=== PATIENT | female | born 1985 | race Hispanic/Latino ===

== ENCOUNTER 2023-12-07 18:21 | Emergency (ER) | payer BC, OTHER ==
[~2023-12-07] VITALS: Ht 154.9 cm; Wt 113.4 kg
[2023-12-07 20:40] LABS: BASOPHILS # (AUTO) 0.09 K/uL (0.00-0.20); BASOPHILS % (AUTO) 0.7 % (0.0-5.0); EOSINOPHILS # (AUTO) 0.14 K/uL (0.00-0.70); EOSINOPHILS % (AUTO) 1.1 % (0.0-8.0); HEMATOCRIT 37.9 % (36-48); IMMATURE GRANULOCYTE ABSOLUTE 0.04 K/uL (0-1); LYMPHOCYTES # (AUTO) 2.8 K/uL (1.0-4.8); LYMPHOCYTES % (AUTO) 21.5 % (21.0-51.0); MEAN CORPUSCULAR HEMOGLOBIN 27.8 pg (27.0-33.0); MEAN CORPUSCULAR HGB CONC 32.2 g/dL (32.0-36.0); MEAN CORPUSCULAR VOLUME 86.3 fL (79-99); MONOCYTES # (AUTO) 0.8 K/uL (0.1-1.0); MONOCYTES % (AUTO) 5.8 % (3.0-13.0); NEUTROPHILS # (AUTO) 9.2 K/uL (1.8-7.7); NEUTROPHILS % (AUTO) 70.6 % (40.0-77.0); PLATELET COUNT (AUTO) 387 K/uL (130-400); RED BLOOD CELL COUNT(AUTO) 4.39 MIL/uL (4.00-5.50)
[2023-12-07 20:52] LABS: CREATININE 0.8 mg/dL (0.5-1.0); POTASSIUM 3.8 mmol/L (3.5-5.1)
[2023-12-07 20:56] LABS: ALBUMIN 3.2 g/dL (3.5-5.0); BILIRUBIN,TOTAL 0.4 mg/dL (0.2-1.0); TOTAL PROTEIN, SERUM 7.6 g/dL (6.0-8.3)
[2023-12-07] MEDS: 0.9%NACL 1000ML 957 ML IV ONE (21:55)
[2023-12-07] MEDS: ONDANSETRON 4MG INJ IVP ONE (21:55)
[2023-12-07] MEDS: MORPHINE 4 MG SYG IVP ONE (21:55)
[2023-12-07] MEDS ORDERED: IOHEXOL-350 75 ML VIAL IV ONE (23:15)
[2023-12-07 23:36] LABS: APPEARANCE,URINE CLEAR (CLEAR); BILIRUBIN,URINE NEGATIVE (NEGATIVE); COLOR,URINE COLORLESS (YELLOW); GLUCOSE, URINE (UA) NEGATIVE (NEGATIVE); KETONES,URINE NEGATIVE (NEGATIVE); LEUKOCYTE ESTERASE ,URINE NEGATIVE Leu/uL (NEGATIVE); NITRATE,URINE NEGATIVE (NEGATIVE); OCCULT BLOOD,URINE NEGATIVE (NEGATIVE); PROTEIN,URINE NEGATIVE (NEGATIVE); UROBILINOGEN,URINE 0.2 mg/dL (0.2-1.0)
[2023-12-07 23:37] LABS: ADD UA MICROSCOPIC NO
[2023-12-08] MEDS: MORPHINE 4 MG SYG IVP ONE (01:23)
[2023-12-08 02:41] VITALS: BP 134/78; PULSE 76; RESP 18; O2SAT 98
== END 2023-12-08 02:45 | disposition home or self-care (01) ==
LOC: EDH 18:21
DX: R10.32 Left lower quadrant pain (principal); K92.1 Melena; R19.7 Diarrhea, unspecified; E66.01 Morbid (severe) obesity due to excess calories; Z98.890 Other specified postprocedural states; Z68.30 Body mass index [BMI] 30.0-30.9, adult
CPT/HCPCS: 99284; 74177; 96374; 96375; 80053; 84703; 83690; 85025; 81003; 36415; 96376; J7030; J2405; J2270 ×2; Q9967